=== PATIENT | male | born 1955 | race African-American/Black ===

== ENCOUNTER 2020-01-10 05:58 | Inpatient (IN) | payer OTHER ==
[2020-01-10] MEDS ORDERED: LISINOPRIL 10 MG TABLET PO ONE (06:32)
[2020-01-10] MEDS ORDERED: LABETALOL HCL 200 MG TABLET (FP) PO ONE (06:37)
[2020-01-10] MEDS ORDERED: cloNIDine HCL 0.1 MG TABLET PO ONE (06:46)
[2020-01-10 06:50] LABS: BASO % 0.4 % (0-2.0); HEMATOCRIT 27.8 % (35.4-49); HEMOGLOBIN 8.8 GM/dL (11.7-16.9); LYMPH % 8.1 % (8-40); MCH 29.4 pg (25.7-33.7); MCHC 31.6 g/dl (32.0-35.9); MEAN CELL VOLUME 92.9 fl (80-96); MEAN PLT VOLUME 8.1 fl (7.5-11.1); MONO % 6.6 % (3.8-10.2); NEUT % 82.9 % (42.8-82.8); PLATELET COUNT 238 K/MM3 (134-434); RBC 2.99 M/mm3 (4.00-5.60); RDW 21.7 % (11.9-15.9); WHITE BLOOD COUNT 10.2 K/mm3 (4.0-10.0)
[2020-01-10] MEDS ORDERED: LISINOPRIL 5 MG TABLET ONE (06:57)
[2020-01-10] MEDS ORDERED: cloNIDine HCL 0.1 MG TABLET ONE (06:57)
[2020-01-10] MEDS ORDERED: LABETALOL HCL 100 MG TABLET (FP) ONE ×2 (06:57→22:42)
[2020-01-10 06:59] LABS: INR 0.98 (0.83-1.09); PROTHROMBIN TIME (PATIENT) 11.9 SEC (9.7-13.0)
[2020-01-10 07:13] LABS: POTASSIUM 5.4 mmol/L (3.5-5.1)
[2020-01-10 07:15] LABS: ALBUMIN 2.9 g/dl (3.4-5.0); BLOOD UREA NITROGEN 32.8 mg/dL (7-18); CALCIUM 8.5 mg/dL (8.5-10.1)
[2020-01-10 07:18] LABS: CREATININE 4.8 mg/dL (0.55-1.3); PHOSPHOROUS 2.1 mg/dL (2.5-4.9)
[2020-01-10 07:20] LABS: BILIRUBIN,TOTAL 0.5 mg/dL (0.2-1); TOT PROT 8.1 g/dl (6.4-8.2)
[2020-01-10] MEDS ORDERED: MAGNESIUM SULF 50% (8.12 MEQ/2 ML-1 GM VIAL) IVPB ONE ×2 (07:42→07:47)
[2020-01-10] MEDS ORDERED: CEFEPIME HCL/D5W 1 GM/50 ML BAG IVPB ONE (07:42)
[2020-01-10] MEDS ORDERED: MAGNESIUM 1GM/D5W - 1 GM/100 ML IVPB IVPB ONE (08:08)
[2020-01-10] MEDS ORDERED: CEFEPIME 1 GM/100 ML BAG IVPB ONE (08:08)
[2020-01-10] MEDS ORDERED: NIFEdipine E.R. 30 MG TABLET ONE (08:54)
[2020-01-10] MEDS: NIFEdipine E.R 60 MG TABLET PO SCH (09:00)
[2020-01-10] MEDS ORDERED: hydrALAZINE HCL 50 MG TABLET (FP) PO ONE (10:42)
[2020-01-10] MEDS ORDERED: hydrALAZINE HCL 25 MG TABLET (FP) ONE ×3 (10:45→22:42)
[2020-01-10] MEDS: hydrALAZINE HCL 25 MG TABLET (FP) PO SCH ×2 (15:26→23:03)
[2020-01-10] MEDS: LABETALOL HCL 200 MG TABLET (FP) PO SCH (23:03)
[2020-01-11] MEDS ORDERED: LABETALOL HCL 100 MG TABLET (FP) PO ONE (02:12)
[2020-01-11] MEDS ORDERED: PNEUMOC 13-VAL CONJ-DIP CRM/PF 0.5 ML DISP.SYRIN IM ONE (02:31)
[2020-01-11] MEDS: hydrALAZINE HCL 25 MG TABLET (FP) PO SCH ×5 (05:14→21:21)
[2020-01-11] MEDS ORDERED: NITROGLYCERIN 2% OINTMENT - 1GM PACKET TD ONE (06:15)
[2020-01-11] MEDS ORDERED: ALPRAZolam 1 MG TABLET PO ONE (06:17)
[2020-01-11] MEDS ORDERED: ALPRAZolam 1 MG TABLET PO PRN (06:37)
[2020-01-11] MEDS ORDERED: ALPRAZolam 0.25 MG TABLET PO ONE (06:45)
[2020-01-11] MEDS ORDERED: PNEUMOCOCCAL 23 VACCINE 0.5 ML VIAL IM ONE (09:00)
[2020-01-11 09:29] LABS: HEMATOCRIT 25.4 % (35.4-49); HEMOGLOBIN 7.8 GM/dL (11.7-16.9); MCH 29.9 pg (25.7-33.7); MCHC 30.7 g/dl (32.0-35.9); MEAN CELL VOLUME 97.4 fl (80-96); MEAN PLT VOLUME 7.9 fl (7.5-11.1); PLATELET COUNT 169 K/MM3 (134-434); RBC 2.61 M/mm3 (4.00-5.60); RDW 21.7 % (11.9-15.9); WHITE BLOOD COUNT 6.4 K/mm3 (4.0-10.0)
[2020-01-11] MEDS ORDERED: FLU VACCINE (FLULAVAL) PF 60 MCG/0.5 ML SYRINGE 2020-2021 IM ONE (10:00)
[2020-01-11] MEDS ORDERED: DEXTROSE 5%-WATER - 50 ML IVPB ONE (11:35)
[2020-01-11] MEDS ORDERED: cefTRIAXone SODIUM 1 GM VIAL ONE (11:35)
[2020-01-11] MEDS: CEFTRIAXONE 1 GM in DEXTROSE 5%-WATER - 50 ML IVPB SCH (11:41)
[2020-01-11] MEDS: NIFEdipine E.R 60 MG TABLET PO SCH (11:41)
[2020-01-11] MEDS: INSULIN SLIDING SCALE (NOVOLOG) 1 VIAL SQ SCH ×3 (11:42→21:38)
[2020-01-11] MEDS ORDERED: SODIUM CHLORIDE 250 ML IV PRN (12:00)
[2020-01-11] MEDS ORDERED: EPOETIN ALFA 20,000 UNIT/1 ML VIAL IVPUSH ONE (12:00)
[2020-01-11] MEDS: LABETALOL HCL 200 MG TABLET (FP) PO SCH ×4 (12:22→21:21)
[2020-01-11 16:44] LABS: POTASSIUM 3.6 mmol/L (3.5-5.1)
[2020-01-11 16:46] LABS: ALBUMIN 3.1 g/dl (3.4-5.0); CALCIUM 8.5 mg/dL (8.5-10.1)
[2020-01-11 16:47] LABS: BLOOD UREA NITROGEN 23.8 mg/dL (7-18)
[2020-01-11 16:51] LABS: BILIRUBIN,TOTAL 0.6 mg/dL (0.2-1); CREATININE 3.3 mg/dL (0.55-1.3); TOT PROT 7.9 g/dl (6.4-8.2)
[2020-01-11] MEDS: ACETAMINOPHEN 325 MG TABLET (FP) PO PRN (20:12)
[2020-01-12] MEDS ORDERED: hydrALAZINE HCL 25 MG TABLET (FP) PO ONE (01:55)
[2020-01-12] MEDS: hydrALAZINE HCL 25 MG TABLET (FP) PO SCH ×2 (06:07→14:38)
[2020-01-12] MEDS: LABETALOL HCL 200 MG TABLET (FP) PO SCH ×3 (06:08→21:43)
[2020-01-12] MEDS: INSULIN SLIDING SCALE (NOVOLOG) 1 VIAL SQ SCH ×4 (06:10→21:48)
[2020-01-12 07:25] LABS: BASO % 0.6 % (0-2.0); EOS % 0.8 % (0-4.5); HEMOGLOBIN 8.4 GM/dL (11.7-16.9); LYMPH % 11.5 % (8-40); MCH 29.7 pg (25.7-33.7); MCHC 32.1 g/dl (32.0-35.9); MEAN CELL VOLUME 92.2 fl (80-96); MEAN PLT VOLUME 7.1 fl (7.5-11.1); MONO % 6.1 % (3.8-10.2); PLATELET COUNT 193 K/MM3 (134-434); RBC 2.82 M/mm3 (4.00-5.60); RDW 21.9 % (11.9-15.9)
[2020-01-12 07:44] LABS: POTASSIUM 3.3 mmol/L (3.5-5.1)
[2020-01-12 07:51] LABS: ALBUMIN 2.9 g/dl (3.4-5.0); BLOOD UREA NITROGEN 32.5 mg/dL (7-18); CALCIUM 8.1 mg/dL (8.5-10.1)
[2020-01-12 07:55] LABS: BILIRUBIN,TOTAL 0.9 mg/dL (0.2-1); CREATININE 4.6 mg/dL (0.55-1.3)
[2020-01-12 07:56] LABS: TOT PROT 7.7 g/dl (6.4-8.2)
[2020-01-12] MEDS ORDERED: cloNIDine HCL 0.1 MG TABLET PO ONE (08:15)
[2020-01-12] MEDS ORDERED: PT OWN MED DRAWER 7, Y5N ONE (09:17)
[2020-01-12] MEDS ORDERED: cefTRIAXone SODIUM 1 GM VIAL ONE (09:17)
[2020-01-12] MEDS ORDERED: DEXTROSE 5%-WATER - 50 ML IVPB ONE (09:18)
[2020-01-12] MEDS: ISOSORBIDE MONONITRATE 30 MG TAB.SR.24H (FP) PO SCH (09:27)
[2020-01-12] MEDS: NIFEdipine E.R 60 MG TABLET PO SCH (09:27)
[2020-01-12] MEDS: CEFTRIAXONE 1 GM in DEXTROSE 5%-WATER - 50 ML IVPB SCH (09:28)
[2020-01-12] MEDS ORDERED: INSULIN (LEVEMIR) 100 UNITS/ML UNITS SQ SCH (10:30)
[2020-01-12] MEDS ORDERED: INSULIN (NOVOLOG) ASPART 100 UNITS/ML 10ML VIAL ONE (11:43)
[2020-01-12] MEDS: CALCIUM ACETATE 667 MG CAPSULE (FP) PO SCH (16:50)
[2020-01-12] MEDS: cloNIDine HCL 0.1 MG TABLET PO SCH ×2 (17:05→21:42)
[2020-01-12] MEDS: hydrALAZINE HCL 50 MG TABLET (FP) PO SCH (21:42)
[2020-01-12] MEDS: GABAPENTIN 100 MG CAPSULE PO SCH (21:43)
[2020-01-12] MEDS: ATORVASTATIN CA 80 MG TABLET (FP) PO SCH (21:43)
[2020-01-12] MEDS: levETIRAcetam 500 MG TABLET (FP) PO SCH (21:43)
[2020-01-13] MEDS: LABETALOL HCL 200 MG TABLET (FP) PO SCH ×3 (06:33→21:35)
[2020-01-13] MEDS: hydrALAZINE HCL 50 MG TABLET (FP) PO SCH ×3 (06:33→21:36)
[2020-01-13] MEDS: INSULIN (LEVEMIR) 100 UNITS/ML UNITS SQ SCH (06:34)
[2020-01-13] MEDS: INSULIN SLIDING SCALE (NOVOLOG) 1 VIAL SQ SCH ×4 (06:36→22:03)
[2020-01-13 07:38] LABS: POTASSIUM 3.7 mmol/L (3.5-5.1)
[2020-01-13 07:39] LABS: CALCIUM 8.4 mg/dL (8.5-10.1)
[2020-01-13 07:43] LABS: CREATININE 6.2 mg/dL (0.55-1.3)
[2020-01-13] MEDS: CALCIUM ACETATE 667 MG CAPSULE (FP) PO SCH ×3 (09:00→16:55)
[2020-01-13] MEDS ORDERED: DEXTROSE 5%-WATER - 50 ML IVPB ONE (09:11)
[2020-01-13] MEDS ORDERED: cefTRIAXone SODIUM 1 GM VIAL ONE (09:11)
[2020-01-13] MEDS: cloNIDine HCL 0.1 MG TABLET PO SCH ×2 (09:25→21:36)
[2020-01-13] MEDS: levETIRAcetam 500 MG TABLET (FP) PO SCH ×2 (09:26→21:35)
[2020-01-13] MEDS: ISOSORBIDE MONONITRATE 30 MG TAB.SR.24H (FP) PO SCH (09:26)
[2020-01-13] MEDS: NIFEdipine E.R 60 MG TABLET PO SCH (09:26)
[2020-01-13] MEDS: ASPIRIN 81 MG CHEWABLE TABLETS PO SCH (09:26)
[2020-01-13] MEDS: CEFTRIAXONE 1 GM in DEXTROSE 5%-WATER - 50 ML IVPB SCH (09:26)
[2020-01-13] MEDS: GABAPENTIN 100 MG CAPSULE PO SCH (21:35)
[2020-01-13] MEDS: ATORVASTATIN CA 80 MG TABLET (FP) PO SCH (21:35)
[2020-01-13] MEDS: ACETAMINOPHEN 325 MG TABLET (FP) PO PRN (22:02)
[2020-01-14] MEDS ORDERED: LABETALOL HCL 100 MG TABLET (FP) PO ONE (03:48)
[2020-01-14] MEDS: LABETALOL HCL 200 MG TABLET (FP) PO SCH ×2 (06:00→21:08)
[2020-01-14] MEDS: hydrALAZINE HCL 50 MG TABLET (FP) PO SCH ×3 (06:01→21:07)
[2020-01-14] MEDS: INSULIN SLIDING SCALE (NOVOLOG) 1 VIAL SQ SCH ×3 (06:14→21:13)
[2020-01-14] MEDS: INSULIN (LEVEMIR) 100 UNITS/ML UNITS SQ SCH (06:15)
[2020-01-14] MEDS ORDERED: cloNIDine HCL 0.1 MG TABLET PO ONE (06:39)
[2020-01-14] MEDS ORDERED: EPOETIN ALFA-EPBX 2,000 UNIT/ML VIAL IVPUSH ONE (08:15)
[2020-01-14] MEDS: CALCIUM ACETATE 667 MG CAPSULE (FP) PO SCH ×3 (08:30→17:12)
[2020-01-14] MEDS ORDERED: cefTRIAXone SODIUM 1 GM VIAL ONE (08:56)
[2020-01-14] MEDS ORDERED: DEXTROSE 5%-WATER - 50 ML IVPB ONE (08:56)
[2020-01-14] MEDS: ASPIRIN 81 MG CHEWABLE TABLETS PO SCH (10:28)
[2020-01-14] MEDS: NIFEdipine E.R 60 MG TABLET PO SCH (10:29)
[2020-01-14] MEDS: ISOSORBIDE MONONITRATE 30 MG TAB.SR.24H (FP) PO SCH (10:29)
[2020-01-14] MEDS: cloNIDine HCL 0.1 MG TABLET PO SCH ×2 (10:30→21:07)
[2020-01-14] MEDS ORDERED: LABETALOL HCL 200 MG TABLET (FP) PO ONE (11:52)
[2020-01-14] MEDS: levETIRAcetam 500 MG TABLET (FP) PO SCH ×2 (14:06→21:08)
[2020-01-14] MEDS: CEFTRIAXONE 1 GM in DEXTROSE 5%-WATER - 50 ML IVPB SCH (14:06)
[2020-01-14 17:26] LABS: BASO % 0.6 % (0-2.0); EOS % 2.1 % (0-4.5); HEMATOCRIT 25.8 % (35.4-49); HEMOGLOBIN 8.1 GM/dL (11.7-16.9); LYMPH % 12.6 % (8-40); MCH 29.4 pg (25.7-33.7); MCHC 31.5 g/dl (32.0-35.9); MEAN CELL VOLUME 93.3 fl (80-96); MEAN PLT VOLUME 7.7 fl (7.5-11.1); MONO % 5.3 % (3.8-10.2); NEUT % 79.4 % (42.8-82.8); PLATELET COUNT 200 K/MM3 (134-434); RBC 2.77 M/mm3 (4.00-5.60); RDW 21.8 % (11.9-15.9); WHITE BLOOD COUNT 6.2 K/mm3 (4.0-10.0)
[2020-01-14 17:53] LABS: ALBUMIN 2.8 g/dl (3.4-5.0); BLOOD UREA NITROGEN 28.3 mg/dL (7-18); CALCIUM 8.5 mg/dL (8.5-10.1)
[2020-01-14 17:58] LABS: BILIRUBIN,TOTAL 0.5 mg/dL (0.2-1)
[2020-01-14 18:09] LABS: TOT PROT 7.4 g/dl (6.4-8.2)
[2020-01-14 20:05] LABS: ANISOCYTOSIS 1+; MACROCYTOSIS 1+
[2020-01-14] MEDS: ATORVASTATIN CA 80 MG TABLET (FP) PO SCH (21:08)
[2020-01-14] MEDS: GABAPENTIN 100 MG CAPSULE PO SCH (21:26)
[2020-01-15] MEDS: LABETALOL HCL 200 MG TABLET (FP) PO SCH ×3 (05:56→21:23)
[2020-01-15] MEDS: hydrALAZINE HCL 50 MG TABLET (FP) PO SCH ×3 (05:56→21:23)
[2020-01-15] MEDS: INSULIN SLIDING SCALE (NOVOLOG) 1 VIAL SQ SCH ×5 (07:06→21:26)
[2020-01-15] MEDS: INSULIN (LEVEMIR) 100 UNITS/ML UNITS SQ SCH (07:06)
[2020-01-15 07:36] LABS: BASO % 0.4 % (0-2.0); EOS % 1.1 % (0-4.5); HEMATOCRIT 26.4 % (35.4-49); HEMOGLOBIN 8.3 GM/dL (11.7-16.9); LYMPH % 9.5 % (8-40); MCH 29.6 pg (25.7-33.7); MCHC 31.5 g/dl (32.0-35.9); MEAN PLT VOLUME 7.7 fl (7.5-11.1); MONO % 6.3 % (3.8-10.2); NEUT % 82.7 % (42.8-82.8); PLATELET COUNT 184 K/MM3 (134-434); RBC 2.81 M/mm3 (4.00-5.60); RDW 21.6 % (11.9-15.9); WHITE BLOOD COUNT 6.2 K/mm3 (4.0-10.0)
[2020-01-15 08:46] LABS: CALCIUM 8.5 mg/dL (8.5-10.1); POTASSIUM 4.4 mmol/L (3.5-5.1)
[2020-01-15] MEDS ORDERED: cefTRIAXone SODIUM 1 GM VIAL ONE (08:49)
[2020-01-15] MEDS ORDERED: DEXTROSE 5%-WATER - 50 ML IVPB ONE (08:49)
[2020-01-15 08:52] LABS: BILIRUBIN,TOTAL 0.8 mg/dL (0.2-1); TOT PROT 7.8 g/dl (6.4-8.2)
[2020-01-15] MEDS ORDERED: INSULIN (NOVOLOG) ASPART 100 UNITS/ML 10ML VIAL ONE (08:52)
[2020-01-15] MEDS: ACETAMINOPHEN 325 MG TABLET (FP) PO PRN (08:56)
[2020-01-15] MEDS: CALCIUM ACETATE 667 MG CAPSULE (FP) PO SCH ×3 (08:58→17:45)
[2020-01-15] MEDS: cloNIDine HCL 0.1 MG TABLET PO SCH ×2 (09:03→21:25)
[2020-01-15] MEDS: levETIRAcetam 500 MG TABLET (FP) PO SCH ×2 (09:03→21:23)
[2020-01-15] MEDS: VITAMIN B COMP W-C 1 EA TABLET (NEPHRO-VITE) PO SCH (09:03)
[2020-01-15] MEDS: ISOSORBIDE MONONITRATE 30 MG TAB.SR.24H (FP) PO SCH (09:03)
[2020-01-15] MEDS: ASPIRIN 81 MG CHEWABLE TABLETS PO SCH (09:03)
[2020-01-15] MEDS: NIFEdipine E.R 60 MG TABLET PO SCH (09:03)
[2020-01-15] MEDS: CEFTRIAXONE 1 GM in DEXTROSE 5%-WATER - 50 ML IVPB SCH (11:40)
[2020-01-15] MEDS ORDERED: INSULIN (NOVOLOG) ASPART 100 UNITS/ML 10ML VIAL SQ ONE (18:08)
[2020-01-15] MEDS: ATORVASTATIN CA 80 MG TABLET (FP) PO SCH (21:23)
[2020-01-15] MEDS: GABAPENTIN 100 MG CAPSULE PO SCH (21:24)
[2020-01-15 23:07] LABS: HEP B CORE AB, TOT Positive (Negative)
[2020-01-16] MEDS: LABETALOL HCL 200 MG TABLET (FP) PO SCH ×3 (06:26→21:28)
[2020-01-16] MEDS: INSULIN (LEVEMIR) 100 UNITS/ML UNITS SQ SCH (06:27)
[2020-01-16] MEDS: hydrALAZINE HCL 50 MG TABLET (FP) PO SCH ×3 (06:27→21:29)
[2020-01-16] MEDS: INSULIN SLIDING SCALE (NOVOLOG) 1 VIAL SQ SCH ×4 (06:32→21:32)
[2020-01-16] MEDS ORDERED: cefTRIAXone SODIUM 1 GM VIAL ONE (09:05)
[2020-01-16] MEDS ORDERED: DEXTROSE 5%-WATER - 50 ML IVPB ONE (09:05)
[2020-01-16] MEDS: ACETAMINOPHEN 325 MG TABLET (FP) PO PRN (09:35)
[2020-01-16] MEDS: NIFEdipine E.R 60 MG TABLET PO SCH (09:35)
[2020-01-16] MEDS: cloNIDine HCL 0.1 MG TABLET PO SCH ×2 (09:36→21:29)
[2020-01-16] MEDS: VITAMIN B COMP W-C 1 EA TABLET (NEPHRO-VITE) PO SCH (09:36)
[2020-01-16] MEDS: levETIRAcetam 500 MG TABLET (FP) PO SCH ×2 (09:36→21:29)
[2020-01-16] MEDS: CALCIUM ACETATE 667 MG CAPSULE (FP) PO SCH ×3 (09:36→17:50)
[2020-01-16] MEDS: ISOSORBIDE MONONITRATE 30 MG TAB.SR.24H (FP) PO SCH (09:36)
[2020-01-16] MEDS: CEFTRIAXONE 1 GM in DEXTROSE 5%-WATER - 50 ML IVPB SCH (09:37)
[2020-01-16] MEDS ORDERED: INSULIN (LEVEMIR) 100 UNITS/ML UNITS SQ ONE (11:05)
[2020-01-16] MEDS ORDERED: INSULIN (LEVEMIR) 100 UNITS/ML UNITS SQ SCH (11:06)
[2020-01-16] MEDS ORDERED: SODIUM CHLORIDE 250 ML IV PRN (11:20)
[2020-01-16] MEDS ORDERED: INSULIN (NOVOLOG) ASPART 100 UNITS/ML 10ML VIAL ONE (11:23)
[2020-01-16 14:35] LABS: ALBUMIN 2.7 g/dl (3.4-5.0)
[2020-01-16 14:38] LABS: BILIRUBIN,DIRECT 0.2 mg/dL (0.0-0.2)
[2020-01-16 14:40] LABS: BILIRUBIN,TOTAL 0.9 mg/dL (0.2-1); TOT PROT 7.1 g/dl (6.4-8.2)
[2020-01-16 15:40] LABS: HEMATOCRIT 24.1 % (35.4-49); HEMOGLOBIN 7.8 GM/dL (11.7-16.9); MCH 30.7 pg (25.7-33.7); MCHC 32.3 g/dl (32.0-35.9); MEAN CELL VOLUME 94.9 fl (80-96); MEAN PLT VOLUME 8.1 fl (7.5-11.1); PLATELET COUNT 192 K/MM3 (134-434); RBC 2.54 M/mm3 (4.00-5.60); WHITE BLOOD COUNT 6.2 K/mm3 (4.0-10.0)
[2020-01-16 16:10] LABS: POTASSIUM 4.1 mmol/L (3.5-5.1)
[2020-01-16 16:12] LABS: BLOOD UREA NITROGEN 55.8 mg/dL (7-18); CALCIUM 8.1 mg/dL (8.5-10.1)
[2020-01-16] MEDS: VALSARTAN 160 MG TABLET PO SCH (17:50)
[2020-01-16] MEDS: ATORVASTATIN CA 80 MG TABLET (FP) PO SCH (21:29)
[2020-01-16] MEDS: GABAPENTIN 100 MG CAPSULE PO SCH (21:29)
[2020-01-17] MEDS: LABETALOL HCL 200 MG TABLET (FP) PO SCH ×3 (06:33→21:07)
[2020-01-17] MEDS: hydrALAZINE HCL 50 MG TABLET (FP) PO SCH ×3 (06:33→21:07)
[2020-01-17 07:07] LABS: BASO % 0.3 % (0-2.0); EOS % 1.5 % (0-4.5); HEMATOCRIT 25.1 % (35.4-49); HEMOGLOBIN 7.8 GM/dL (11.7-16.9); MCH 29.8 pg (25.7-33.7); MCHC 31.3 g/dl (32.0-35.9); MEAN CELL VOLUME 95.1 fl (80-96); MEAN PLT VOLUME 8.1 fl (7.5-11.1); MONO % 6.2 % (3.8-10.2); PLATELET COUNT 191 K/MM3 (134-434); RBC 2.64 M/mm3 (4.00-5.60); RDW 21.6 % (11.9-15.9); WHITE BLOOD COUNT 5.5 K/mm3 (4.0-10.0)
[2020-01-17 07:18] LABS: POTASSIUM 3.7 mmol/L (3.5-5.1)
[2020-01-17 07:20] LABS: CALCIUM 7.6 mg/dL (8.5-10.1)
[2020-01-17 07:24] LABS: BILIRUBIN,DIRECT 0.2 mg/dL (0.0-0.2); CREATININE 4.7 mg/dL (0.55-1.3)
[2020-01-17 07:25] LABS: BILIRUBIN,TOTAL 0.8 mg/dL (0.2-1)
[2020-01-17 07:26] LABS: TOT PROT 7.3 g/dl (6.4-8.2)
[2020-01-17 07:34] LABS: BLOOD UREA NITROGEN 30.6 mg/dL (7-18)
[2020-01-17] MEDS: INSULIN SLIDING SCALE (NOVOLOG) 1 VIAL SQ SCH ×4 (07:36→21:07)
[2020-01-17] MEDS: CALCIUM ACETATE 667 MG CAPSULE (FP) PO SCH ×3 (08:34→17:55)
[2020-01-17] MEDS: NIFEdipine E.R 60 MG TABLET PO SCH (09:15)
[2020-01-17] MEDS: cloNIDine HCL 0.1 MG TABLET PO SCH ×2 (09:15→21:07)
[2020-01-17] MEDS: VALSARTAN 160 MG TABLET PO SCH (09:15)
[2020-01-17] MEDS: ISOSORBIDE MONONITRATE 30 MG TAB.SR.24H (FP) PO SCH (09:15)
[2020-01-17] MEDS: levETIRAcetam 500 MG TABLET (FP) PO SCH ×2 (09:15→21:07)
[2020-01-17] MEDS ORDERED: cefTRIAXone SODIUM 1 GM VIAL ONE (09:20)
[2020-01-17] MEDS ORDERED: DEXTROSE 5%-WATER - 50 ML IVPB ONE (09:20)
[2020-01-17] MEDS: VITAMIN B COMP W-C 1 EA TABLET (NEPHRO-VITE) PO SCH (09:34)
[2020-01-17] MEDS: CEFTRIAXONE 1 GM in DEXTROSE 5%-WATER - 50 ML IVPB SCH (09:35)
[2020-01-17] MEDS ORDERED: INSULIN (NOVOLOG) ASPART 100 UNITS/ML 10ML VIAL SQ ONE ×2 (10:00→11:00)
[2020-01-17] MEDS ORDERED: VALSARTAN 160 MG TABLET PO ONE (11:00)
[2020-01-17 15:56] VITALS: BMI 18.6
[2020-01-17] MEDS ORDERED: SODIUM CHLORIDE 250 ML IV PRN (15:57)
[2020-01-17] MEDS: GABAPENTIN 100 MG CAPSULE PO SCH (21:07)
[2020-01-17] MEDS: ATORVASTATIN CA 80 MG TABLET (FP) PO SCH (21:07)
[2020-01-17] MEDS: INSULIN (LEVEMIR) 100 UNITS/ML UNITS SQ SCH (21:08)
[2020-01-17] MEDS ORDERED: INSULIN (LEVEMIR) 100 UNITS/ML UNITS SQ SCH (22:00)
[2020-01-18] MEDS: LABETALOL HCL 200 MG TABLET (FP) PO SCH ×3 (05:53→15:24)
[2020-01-18] MEDS: hydrALAZINE HCL 50 MG TABLET (FP) PO SCH ×2 (05:54→15:19)
[2020-01-18] MEDS: INSULIN SLIDING SCALE (NOVOLOG) 1 VIAL SQ SCH ×4 (06:10→22:37)
[2020-01-18] MEDS: INSULIN (LEVEMIR) 100 UNITS/ML UNITS SQ SCH ×2 (06:10→22:36)
[2020-01-18 07:33] LABS: BASO % 0.6 % (0-2.0); HEMATOCRIT 26.6 % (35.4-49); HEMOGLOBIN 8.4 GM/dL (11.7-16.9); LYMPH % 15.9 % (8-40); MCH 29.5 pg (25.7-33.7); MCHC 31.8 g/dl (32.0-35.9); MEAN CELL VOLUME 92.7 fl (80-96); MEAN PLT VOLUME 7.3 fl (7.5-11.1); MONO % 6.7 % (3.8-10.2); NEUT % 73.8 % (42.8-82.8); PLATELET COUNT 207 K/MM3 (134-434); RBC 2.87 M/mm3 (4.00-5.60); WHITE BLOOD COUNT 5.5 K/mm3 (4.0-10.0)
[2020-01-18 07:54] LABS: POTASSIUM 3.4 mmol/L (3.5-5.1)
[2020-01-18 08:03] LABS: BILIRUBIN,TOTAL 0.7 mg/dL (0.2-1); TOT PROT 7.2 g/dl (6.4-8.2)
[2020-01-18 08:04] LABS: ALBUMIN 2.9 g/dl (3.4-5.0); CALCIUM 7.7 mg/dL (8.5-10.1)
[2020-01-18 08:05] LABS: BLOOD UREA NITROGEN 44.3 mg/dL (7-18)
[2020-01-18 08:11] LABS: CREATININE 5.9 mg/dL (0.55-1.3)
[2020-01-18] MEDS ORDERED: EPOETIN ALFA 10,000 UNIT/1 ML VIAL IVPUSH ONE (08:15)
[2020-01-18] MEDS ORDERED: INSULIN (LEVEMIR) 100 UNITS/ML UNITS SQ SCH ×2 (09:00→22:00)
[2020-01-18] MEDS: CALCIUM ACETATE 667 MG CAPSULE (FP) PO SCH ×3 (09:17→16:51)
[2020-01-18 09:43] LABS: ANISOCYTOSIS 2+; MACROCYTOSIS 1+; OVALOCYTE 1+; PLATELET ESTIMATE NORMAL; TARGET CELLS 1+
[2020-01-18] MEDS: cloNIDine HCL 0.1 MG TABLET PO SCH (10:34)
[2020-01-18] MEDS: CEFTRIAXONE 1 GM in DEXTROSE 5%-WATER - 50 ML IVPB SCH ×2 (10:35→15:19)
[2020-01-18] MEDS: levETIRAcetam 500 MG TABLET (FP) PO SCH ×3 (10:35→21:53)
[2020-01-18] MEDS: NIFEdipine E.R 60 MG TABLET PO SCH ×2 (10:35→15:22)
[2020-01-18] MEDS: ISOSORBIDE MONONITRATE 30 MG TAB.SR.24H (FP) PO SCH ×2 (10:35→15:19)
[2020-01-18] MEDS: VITAMIN B COMP W-C 1 EA TABLET (NEPHRO-VITE) PO SCH ×2 (10:35→15:19)
[2020-01-18] MEDS: VALSARTAN 160 MG TABLET PO SCH ×2 (10:35→15:19)
[2020-01-18] MEDS ORDERED: cefTRIAXone SODIUM 1 GM VIAL ONE (15:16)
[2020-01-18] MEDS ORDERED: DEXTROSE 5%-WATER - 50 ML IVPB ONE (15:18)
[2020-01-18] MEDS ORDERED: traMADol HCL 50 MG TABLET PO ONE (20:01)
[2020-01-18 20:10] LABS: HEP B CORE AB, TOT Positive (Negative)
[2020-01-18] MEDS: ATORVASTATIN CA 80 MG TABLET (FP) PO SCH (21:52)
[2020-01-18] MEDS: GABAPENTIN 100 MG CAPSULE PO SCH (21:55)
[2020-01-19] MEDS: hydrALAZINE HCL 50 MG TABLET (FP) PO SCH ×4 (03:20→21:23)
[2020-01-19] MEDS: cloNIDine HCL 0.1 MG TABLET PO SCH ×3 (03:20→21:24)
[2020-01-19] MEDS: LABETALOL HCL 200 MG TABLET (FP) PO SCH ×4 (03:22→21:25)
[2020-01-19] MEDS: INSULIN SLIDING SCALE (NOVOLOG) 1 VIAL SQ SCH ×4 (06:55→21:25)
[2020-01-19 06:56] LABS: BASO % 0.7 % (0-2.0); EOS % 2.9 % (0-4.5); HEMATOCRIT 29.3 % (35.4-49); HEMOGLOBIN 9.4 GM/dL (11.7-16.9); LYMPH % 14.3 % (8-40); MCH 29.6 pg (25.7-33.7); MCHC 31.9 g/dl (32.0-35.9); MEAN CELL VOLUME 92.9 fl (80-96); MEAN PLT VOLUME 7.5 fl (7.5-11.1); MONO % 7.2 % (3.8-10.2); NEUT % 74.9 % (42.8-82.8); PLATELET COUNT 218 K/MM3 (134-434); RBC 3.16 M/mm3 (4.00-5.60); RDW 21.1 % (11.9-15.9); WHITE BLOOD COUNT 4.7 K/mm3 (4.0-10.0)
[2020-01-19] MEDS: INSULIN (LEVEMIR) 100 UNITS/ML UNITS SQ SCH ×2 (06:57→21:24)
[2020-01-19 07:37] LABS: BLOOD UREA NITROGEN 27.1 mg/dL (7-18)
[2020-01-19 07:39] LABS: ALBUMIN 2.9 g/dl (3.4-5.0); CALCIUM 8.4 mg/dL (8.5-10.1)
[2020-01-19 07:42] LABS: BILIRUBIN,TOTAL 0.9 mg/dL (0.2-1); CREATININE 4.1 mg/dL (0.55-1.3)
[2020-01-19 07:43] LABS: TOT PROT 7.8 g/dl (6.4-8.2)
[2020-01-19] MEDS ORDERED: cefTRIAXone SODIUM 1 GM VIAL ONE (08:19)
[2020-01-19] MEDS ORDERED: DEXTROSE 5%-WATER - 50 ML IVPB ONE (08:20)
[2020-01-19] MEDS: levETIRAcetam 500 MG TABLET (FP) PO SCH ×2 (09:37→21:24)
[2020-01-19] MEDS: NIFEdipine E.R 60 MG TABLET PO SCH (09:37)
[2020-01-19] MEDS: ISOSORBIDE MONONITRATE 30 MG TAB.SR.24H (FP) PO SCH (09:38)
[2020-01-19] MEDS: CEFTRIAXONE 1 GM in DEXTROSE 5%-WATER - 50 ML IVPB SCH (09:38)
[2020-01-19] MEDS: VALSARTAN 160 MG TABLET PO SCH (09:38)
[2020-01-19] MEDS: VITAMIN B COMP W-C 1 EA TABLET (NEPHRO-VITE) PO SCH (09:38)
[2020-01-19] MEDS: CALCIUM ACETATE 667 MG CAPSULE (FP) PO SCH ×3 (09:38→16:34)
[2020-01-19] MEDS ORDERED: Insulin (LOG) Aspart 100 UNITS/ML VIAL SQ ONE (14:25)
[2020-01-19] MEDS ORDERED: INSULIN (NOVOLOG) ASPART 100 UNITS/ML 10ML VIAL SQ ONE (14:25)
[2020-01-19] MEDS: GABAPENTIN 100 MG CAPSULE PO SCH (21:25)
[2020-01-19] MEDS: ATORVASTATIN CA 80 MG TABLET (FP) PO SCH (21:25)
[2020-01-20] MEDS ORDERED: INSULIN (NOVOLOG) ASPART 100 UNITS/ML 10ML VIAL SQ ONE ×2 (04:30→06:15)
[2020-01-20] MEDS: hydrALAZINE HCL 50 MG TABLET (FP) PO SCH ×3 (06:34→21:35)
[2020-01-20] MEDS: LABETALOL HCL 200 MG TABLET (FP) PO SCH ×3 (06:35→21:34)
[2020-01-20] MEDS: INSULIN (LEVEMIR) 100 UNITS/ML UNITS SQ SCH ×2 (06:36→21:36)
[2020-01-20 07:19] LABS: BASO % 0.6 % (0-2.0); HEMATOCRIT 24.3 % (35.4-49); HEMOGLOBIN 7.7 GM/dL (11.7-16.9); LYMPH % 21.2 % (8-40); MCH 29.5 pg (25.7-33.7); MCHC 31.6 g/dl (32.0-35.9); MEAN CELL VOLUME 93.5 fl (80-96); MEAN PLT VOLUME 7.8 fl (7.5-11.1); MONO % 7.5 % (3.8-10.2); NEUT % 68.7 % (42.8-82.8); PLATELET COUNT 187 K/MM3 (134-434); RDW 19.6 % (11.9-15.9); WHITE BLOOD COUNT 5.7 K/mm3 (4.0-10.0)
[2020-01-20 07:35] LABS: POTASSIUM 4.3 mmol/L (3.5-5.1)
[2020-01-20 07:37] LABS: CALCIUM 8.2 mg/dL (8.5-10.1)
[2020-01-20] MEDS: INSULIN SLIDING SCALE (NOVOLOG) 1 VIAL SQ SCH ×4 (07:37→21:37)
[2020-01-20 07:38] LABS: ALBUMIN 2.8 g/dl (3.4-5.0); BLOOD UREA NITROGEN 47.3 mg/dL (7-18)
[2020-01-20 07:41] LABS: CREATININE 6.1 mg/dL (0.55-1.3)
[2020-01-20 07:42] LABS: BILIRUBIN,TOTAL 0.7 mg/dL (0.2-1)
[2020-01-20 07:43] LABS: TOT PROT 7.4 g/dl (6.4-8.2)
[2020-01-20] MEDS ORDERED: cefTRIAXone SODIUM 1 GM VIAL ONE (09:19)
[2020-01-20] MEDS ORDERED: DEXTROSE 5%-WATER - 50 ML IVPB ONE (09:19)
[2020-01-20] MEDS: ISOSORBIDE MONONITRATE 30 MG TAB.SR.24H (FP) PO SCH (09:22)
[2020-01-20] MEDS: VITAMIN B COMP W-C 1 EA TABLET (NEPHRO-VITE) PO SCH (09:24)
[2020-01-20] MEDS: NIFEdipine E.R 60 MG TABLET PO SCH (09:24)
[2020-01-20] MEDS: levETIRAcetam 500 MG TABLET (FP) PO SCH ×2 (09:24→21:34)
[2020-01-20] MEDS: cloNIDine HCL 0.1 MG TABLET PO SCH ×2 (09:24→21:35)
[2020-01-20] MEDS: VALSARTAN 160 MG TABLET PO SCH (09:24)
[2020-01-20] MEDS: CALCIUM ACETATE 667 MG CAPSULE (FP) PO SCH ×3 (09:25→17:20)
[2020-01-20] MEDS: CEFTRIAXONE 1 GM in DEXTROSE 5%-WATER - 50 ML IVPB SCH (09:25)
[2020-01-20 13:15] LABS: BF WBC & OTHER NUCLEATED CELLS 265 /mm3
[2020-01-20 14:22] LABS: BODY FLUID MONOCYTE 18 %
[2020-01-20 14:23] LABS: BODY FLUID MACROPHAGES 48 %; BODY FLUID MESOTHELIAL 4 %
[2020-01-20] MEDS ORDERED: SODIUM CHLORIDE 250 ML IV PRN (18:47)
[2020-01-20] MEDS ORDERED: INSULIN (NOVOLOG) ASPART 100 UNITS/ML 10ML VIAL ONE (21:09)
[2020-01-20] MEDS: GABAPENTIN 100 MG CAPSULE PO SCH (21:34)
[2020-01-20] MEDS: ATORVASTATIN CA 80 MG TABLET (FP) PO SCH (21:34)
[2020-01-21] MEDS: hydrALAZINE HCL 50 MG TABLET (FP) PO SCH ×3 (06:23→22:27)
[2020-01-21] MEDS: INSULIN (LEVEMIR) 100 UNITS/ML UNITS SQ SCH ×2 (06:23→22:39)
[2020-01-21] MEDS: LABETALOL HCL 200 MG TABLET (FP) PO SCH ×3 (06:23→22:27)
[2020-01-21] MEDS: INSULIN SLIDING SCALE (NOVOLOG) 1 VIAL SQ SCH ×4 (06:24→22:36)
[2020-01-21] MEDS: CALCIUM ACETATE 667 MG CAPSULE (FP) PO SCH ×3 (08:15→17:30)
[2020-01-21] MEDS ORDERED: DEXTROSE 5%-WATER - 50 ML IVPB ONE (08:53)
[2020-01-21] MEDS ORDERED: cefTRIAXone SODIUM 1 GM VIAL ONE (08:53)
[2020-01-21] MEDS: CEFTRIAXONE 1 GM in DEXTROSE 5%-WATER - 50 ML IVPB SCH (09:49)
[2020-01-21] MEDS: NIFEdipine E.R 60 MG TABLET PO SCH (09:56)
[2020-01-21] MEDS: VITAMIN B COMP W-C 1 EA TABLET (NEPHRO-VITE) PO SCH (09:56)
[2020-01-21] MEDS: ISOSORBIDE MONONITRATE 30 MG TAB.SR.24H (FP) PO SCH (09:56)
[2020-01-21] MEDS: VALSARTAN 160 MG TABLET PO SCH (09:56)
[2020-01-21] MEDS: levETIRAcetam 500 MG TABLET (FP) PO SCH ×2 (09:56→22:27)
[2020-01-21] MEDS: cloNIDine HCL 0.1 MG TABLET PO SCH ×2 (09:57→22:28)
[2020-01-21 14:08] LABS: BODY FLUID ALBUMIN 2.4 g/dL (Not Estab.)
[2020-01-21] MEDS ORDERED: IRON SUCROSE INJECTION 300 MG in SODIUM CHLORIDE 235 ML IVPB ONE (14:15)
[2020-01-21] MEDS ORDERED: ACETAMINOPHEN 325 MG TABLET (FP) PO ONE (17:33)
[2020-01-21] MEDS ORDERED: EPOETIN ALFA-EPBX 10,000 UNIT/ML VIAL IVPUSH ONE (19:00)
[2020-01-21 19:56] LABS: HEMATOCRIT 22.2 % (35.4-49); HEMOGLOBIN 7.1 GM/dL (11.7-16.9); MCH 29.8 pg (25.7-33.7); MCHC 31.9 g/dl (32.0-35.9); MEAN CELL VOLUME 93.3 fl (80-96); PLATELET COUNT 201 K/MM3 (134-434); RBC 2.38 M/mm3 (4.00-5.60); RDW 19.2 % (11.9-15.9); WHITE BLOOD COUNT 4.1 K/mm3 (4.0-10.0)
[2020-01-21 20:20] LABS: POTASSIUM 3.9 mmol/L (3.5-5.1)
[2020-01-21 20:22] LABS: ALBUMIN 2.6 g/dl (3.4-5.0); BLOOD UREA NITROGEN 52.7 mg/dL (7-18)
[2020-01-21 20:25] LABS: CREATININE 5.8 mg/dL (0.55-1.3)
[2020-01-21 20:27] LABS: BILIRUBIN,TOTAL 0.4 mg/dL (0.2-1); TOT PROT 6.6 g/dl (6.4-8.2)
[2020-01-21] MEDS: ATORVASTATIN CA 80 MG TABLET (FP) PO SCH (22:27)
[2020-01-21] MEDS: GABAPENTIN 100 MG CAPSULE PO SCH (22:27)
[2020-01-22] MEDS: LABETALOL HCL 200 MG TABLET (FP) PO SCH (06:15)
[2020-01-22] MEDS: hydrALAZINE HCL 50 MG TABLET (FP) PO SCH (06:15)
[2020-01-22] MEDS: INSULIN SLIDING SCALE (NOVOLOG) 1 VIAL SQ SCH (06:31)
[2020-01-22] MEDS: INSULIN (LEVEMIR) 100 UNITS/ML UNITS SQ SCH (06:32)
[2020-01-22 07:29] LABS: BASO % 0.7 % (0-2.0); EOS % 3.1 % (0-4.5); HEMATOCRIT 25.7 % (35.4-49); HEMOGLOBIN 8.2 GM/dL (11.7-16.9); LYMPH % 11.2 % (8-40); MCH 29.9 pg (25.7-33.7); MCHC 32.1 g/dl (32.0-35.9); MEAN PLT VOLUME 7.9 fl (7.5-11.1); MONO % 6.8 % (3.8-10.2); NEUT % 78.2 % (42.8-82.8); PLATELET COUNT 248 K/MM3 (134-434); RBC 2.76 M/mm3 (4.00-5.60); RDW 19.3 % (11.9-15.9); WHITE BLOOD COUNT 5.5 K/mm3 (4.0-10.0)
[2020-01-22 07:44] LABS: ALBUMIN 2.8 g/dl (3.4-5.0); CALCIUM 8.1 mg/dL (8.5-10.1)
[2020-01-22 07:45] LABS: BLOOD UREA NITROGEN 33.2 mg/dL (7-18)
[2020-01-22 07:47] LABS: BILIRUBIN,DIRECT 0.2 mg/dL (0.0-0.2); CREATININE 4.4 mg/dL (0.55-1.3)
[2020-01-22 07:48] LABS: BILIRUBIN,TOTAL 1.2 mg/dL (0.2-1)
[2020-01-22 07:49] LABS: TOT PROT 7.3 g/dl (6.4-8.2)
[2020-01-22] MEDS: CALCIUM ACETATE 667 MG CAPSULE (FP) PO SCH (09:42)
[2020-01-22] MEDS: levETIRAcetam 500 MG TABLET (FP) PO SCH (09:42)
[2020-01-22] MEDS: NIFEdipine E.R 60 MG TABLET PO SCH (09:42)
[2020-01-22] MEDS: VALSARTAN 160 MG TABLET PO SCH (09:43)
[2020-01-22] MEDS: ISOSORBIDE MONONITRATE 30 MG TAB.SR.24H (FP) PO SCH (09:43)
[2020-01-22] MEDS: cloNIDine HCL 0.1 MG TABLET PO SCH (09:44)
[2020-01-22] MEDS: ASPIRIN 81 MG CHEWABLE TABLETS PO SCH (09:44)
[2020-01-22] MEDS: VITAMIN B COMP W-C 1 EA TABLET (NEPHRO-VITE) PO SCH (09:45)
[2020-01-22 11:01] VITALS: BP 190/100; PULSE 86; TEMP 97.2
== END 2020-01-22 10:29 | DRG 637 ==
LOC: JER 05:58 → JERBED 09:00 → J7W 01-11 00:51 → J4W 01-11 13:19
PROVIDERS: ADMIT Family Medicine; ATTEND Family Medicine
PROC: 5A1D70Z Performance of Urinary Filtration, Intermittent, Less than 6 Hours Per Day (ICD-10-PCS; principal; 2020-01-16)
PROC: 5A1D70Z Performance of Urinary Filtration, Intermittent, Less than 6 Hours Per Day (ICD-10-PCS; 2020-01-18)
PROC: 0W993ZX Drainage of Right Pleural Cavity, Percutaneous Approach, Diagnostic (ICD-10-PCS; 2020-01-20)
PROC: 5A1D70Z Performance of Urinary Filtration, Intermittent, Less than 6 Hours Per Day (ICD-10-PCS; 2020-01-21)
DX: E10.649 Type 1 diabetes mellitus with hypoglycemia without coma (principal); J18.9 Pneumonia, unspecified organism; I16.1 Hypertensive emergency; J98.11 Atelectasis; M86.9 Osteomyelitis, unspecified; J91.8 Pleural effusion in other conditions classified elsewhere; I12.0 Hypertensive chronic kidney disease with stage 5 chronic kidney disease or end stage renal disease; R64 Cachexia; Z68.1 Body mass index [BMI] 19.9 or less, adult; Z87.820 Personal history of traumatic brain injury; R52 Pain, unspecified; N18.6 End stage renal disease; R74.8 Abnormal levels of other serum enzymes; Z99.2 Dependence on renal dialysis; D64.9 Anemia, unspecified
CPT/HCPCS: 36415; 70450-TC; 71045-TC-FY; 71250-TC; 72125-TC; 74181-TC; 76705-TC; 76942; 80048; 80053; 80076; 82042; 82150; 82465; 82550; 82553; 82607; 82728; 82945; 82947; 82962; 82977; 83036; 83540; 83550; 83615; 83735; 83986; 84100; 84157; 84439; 84443; 84478; 84484; 85025; 85027; 85610; 85730; 86704; 86706; 86707; 86708; 86709; 86803; 87070; 87075; 87081; 87102; 87116; 87205; 87206; 87210; 87340; 87899; 88108; 88305-TC; 93005; 93010; 99285-25; C9803; J0735; J0885; J1756; Q5106; U0003